=== PATIENT | male | born 1945 | race African-American/Black ===

== ENCOUNTER 2017-10-01 09:13 | Day surgery (SDC) | payer MEDICARE, MEDICAID ==
--- NOTE | 2017-10-01 06:10 | HP ---
SHORT STAY HISTORY AND PHYSICAL DATE OF ADMISSION: 10/01/2017 HISTORY OF PRESENT ILLNESS: This is a 72-year-old -Macanese male referred to me for evaluation of iron deficiency anemia. The patient had seen me two years ago with similar symptoms. At that time, his EGD and colonoscopy were negative. The patient has no symptoms of anemia. His oral intake is actually very good. He eats very well. However, he has been losing weight, lost about 12 pounds. The anemia is iron deficient. The patient has no history of hematochezia or any melena. The patient's small bowel biopsy in the past was negative for a celiac disease. The patient comes for an EGD and colonoscopy because of unexplained iron deficiency anemia. MEDICAL ILLNESSES: 1. Hypertension. 2. Prostate hypertrophy. 3. Mild dementia. 4. Osteoarthritis. 5. Chronic acid reflux. 6. Diverticulosis. 7. Allergic rhinitis. 8. Asthma. ALLERGIES: MELOXICAM. PHYSICAL EXAMINATION: GENERAL: The patient is thin built, appears comfortable. VITAL SIGNS: Pulse is 70, blood pressure is 130/70. HEENT: Conjunctivae are clear. CARDIOVASCULAR: First and second heart sounds normal. LUNGS: Clear to auscultation. ABDOMEN: Soft to palpate. No organomegaly. No tenderness. No masses. EXTREMITIES: Reveal no edema. ADMITTING DIAGNOSIS: A 72-year-old male with unexplained iron deficiency anemia. He has no history of hematochezia or melena. He does have history of weight loss of about 12 pounds over the last couple of years. PLAN: EGD and colonoscopy. [facility]
--- NOTE | 2017-10-01 13:07 | OP ---
DATE OF PROCEDURE: 10/01/2017 SURGEON: Dr. Jonathan Fatima OPERATIVE PROCEDURE: Colonoscopy with polypectomy. PREOPERATIVE DIAGNOSES: 1. Microcytic anemia. 2. Weight loss. POSTOPERATIVE DIAGNOSES: 1. Diffuse colonic diverticular disease. 2. Hemorrhoids. 3. Sessile polyp cecum, status post snare cautery. PROCEDURE IN DETAIL: The patient was placed on his left lateral position and was given sedation by A nesthesia Department. A rectal exam was done before the scope was advanced into the rectum. No lesi ons were felt on rectal exam. A Pentax video colonoscope was introduced into the rectum and advanced all the way to the cecum. The patient had retained stool, especially in the left colon. Water was used to irrigate and wash out. The mucosa appears normal throughout the colon. The appendiceal open ing, ileocecal valve, no pathology seen. A sessile cecal polyp was removed with snare cautery. The polyp stem was cauterized. He has a 10 Bulgarian probe was passed through biopsy channel and the polype ctomy site cauterized with good hemostasis. The patient had diffuse colonic diverticular disease sta rting at the sigmoid colon all the way to the cecum. The rectum showed hemorrhoids.
--- NOTE | 2017-10-01 13:56 | OP ---
DATE OF PROCEDURE: 10/01/2017 OPERATIVE PROCEDURE: Esophagogastroduodenoscopy with biopsy. PREOPERATIVE DIAGNOSES: Anemia and weight loss. POSTOPERATIVE DIAGNOSES: 1. Mild mucosal hyperemia of distal esophagus. 2. Antral gastritis. PROCEDURE NOTE: The patient was placed on his left lateral position and was given sedation by Anesth esia Department. A Pentax video gastroscope under direct vision was passed down the oropharynx, past the gastroesophageal junction, the stomach and subsequent descending duodenum. The esophageal mucos a appeared normal over the upper two-thirds. Over the distal esophagus, mild mucosal hyperemia noted . He has small hiatus hernia. The fundus, cardia, gastric body, no pathology seen. The gastric ant rum shows patchy areas of mucosal edema and erythema. Biopsies were obtained from the area. The duo denal bulb and descending duodenum, no pathology seen. The stomach was decompressed and the scope re moved. DISCHARGE PLANNING: This is a 72-year-old -Martiniquais male with anemia, which is iron deficienc y. He also has history of weight loss. He underwent EGD which was found to have antral gastritis. The colonoscopy showed a sessile polyp in the cecum. DISCHARGE RECOMMENDATIONS: 1. Patient was advised to call me if he develops abdominal pain, hematochezia or fever. 2. High-fiber diet. 3. To come back in 2 weeks.
[2017-10-01] MEDS ORDERED: PROPOFOL 200 MG/20 ML VIAL ONE (15:52)
[2017-10-01] MEDS ORDERED: Lidocaine 1% PF 5 ML VIAL ONE (15:52)
== END 2017-10-01 13:05 | disposition home or self-care (01) ==
LOC: SDC 09:13
PROVIDERS: ATTEND Internal Medicine Gastroenterology
PROC: 0DBH8ZX Excision of Cecum, Via Natural or Artificial Opening Endoscopic, Diagnostic (ICD-10-PCS; principal; 2017-10-01)
PROC: 0DB68ZX Excision of Stomach, Via Natural or Artificial Opening Endoscopic, Diagnostic (ICD-10-PCS; 2017-10-01)
DX: D12.0 Benign neoplasm of cecum (principal); D50.0 Iron deficiency anemia secondary to blood loss (chronic); K29.50 Unspecified chronic gastritis without bleeding; K57.30 Diverticulosis of large intestine without perforation or abscess without bleeding; K64.9 Unspecified hemorrhoids; K21.9 Gastro-esophageal reflux disease without esophagitis; K44.9 Diaphragmatic hernia without obstruction or gangrene; I10 Essential (primary) hypertension; F03.90 Unspecified dementia, unspecified severity, without behavioral disturbance, psychotic disturbance, mood disturbance, and anxiety; M19.90 Unspecified osteoarthritis, unspecified site; J45.909 Unspecified asthma, uncomplicated; Z88.8 Allergy status to other drugs, medicaments and biological substances
CPT/HCPCS: 88305; 88312; J2001; J2704

== ENCOUNTER 2019-04-07 21:43 | Inpatient (IN) | payer MEDICARE ==
[2019-04-07 22:33] LABS: Hemoglobin 14.2 g/dL (14.0-18.0); Mean Corpuscular HGB CONC 33.6 g/dL (32.0-36.0); Mean Corpuscular Hemoglobin 32.4 pg (27.0-31.0); Mean Corpuscular Volume 96.3 fL (78.0-98.0); RBC Distribution Width 13.5 % (11.5-14.5); Red Blood Cell (RBC) Count 4.39 mill/uL (4.70-6.10); White Blood Cell (WBC) Count 8.5 thou/uL (4.8-10.8)
[2019-04-07 22:48] LABS: ALT (SGPT) 276 U/L (8-55); AST (SGOT) 187 U/L (5-34); Albumin 3.4 g/dL (3.4-4.8); Alkaline Phosphatase 399 U/L (40-150); Anion Gap 12 mmol/L (10-20); BUN (Urea Nitrogen) 27 mg/dL (8.4-25.7); Bilirubin, Total 3.7 mg/dL (0.2-1.2); Calc. Creatinine Clearance 0 mL/min (70-130); Calcium 8.5 mg/dL (7.8-10.44); Carbon Dioxide 24 mmol/L (23-31); Chloride 107 mmol/L (98-107); Estimated GFR-MDRD 64; Globulin 2.5 g/dL (2.4-3.5); Glucose 103 mg/dL (83-110); Lipase 24 U/L (8-78); Protein, Total 5.9 g/dL (5.8-8.1); Sodium 139 mmol/L (136-145)
[2019-04-07 22:51] LABS: #Monocytes 0.6 thou/uL (0.11-0.59); #Neutrophils 6.8 thou/uL (1.40-6.50); %Basophils 0.4 % (0.0-1.0); %Eosinophils 0.2 % (0.0-10.0); %Lymphocytes 12.2 % (21.0-51.0); %Monocytes 7.3 % (0.0-10.0); Large Platelets SLIGHT; MDiff Complete? YES; Mean Platelet Volume 11.2 fL (7.4-10.4); Platelet Count 117 thou/uL (130-400)
[2019-04-08] MEDS ORDERED: Aspirin Chewable 81 MG TAB ONE (00:56)
[2019-04-08 01:07] LABS: Bacteria/HPF None Seen HPF (None Seen); Bilirubin Negative (Negative); Blood, Urine Trace (Negative); Clarity Clear (Clear); Glucose, Urine (Dipstick) Normal (Negative); Leukocyte 250 Leu/uL (Negative); Nitrite Negative (Negative); Protein, Urine (Dipstick) 20 mg/dL (Neg-Trace); RBC/HPF 0-3 HPF (0-3); Squamous Epithelial None Seen HPF (0-3); Urobilinogen 3 mg/dL (Less than 2)
[2019-04-08 02:05] LABS: Troponin I 0.155 ng/mL (< 0.028)
[2019-04-08] MEDS ORDERED: Ondansetron ODT 4 MG TAB SL PRN (03:58)
[2019-04-08] MEDS ORDERED: Acetaminophen 325 MG TAB PO PRN (03:58)
[2019-04-08] MEDS ORDERED: Ondansetron PF 4 MG/2 ML Vial IVP PRN (03:58)
[2019-04-08 05:54] VITALS: BMI 20.2
[2019-04-08 06:24] LABS: Troponin I 0.135 ng/mL (< 0.028)
--- NOTE | 2019-04-08 08:23 | ULT ---
PRELIMINARY REPORT/[facility]/EMERGENCY AFTER HOURS PROCEDURE: EXAM: US Abdomen Limited, Right Upper Quadrant EXAM DATE/TIME: 04/07/2019 11:53 PM CLINICAL HISTORY: 73 years old, male; Abdominal pain; Localized; Right upper quadrant (ruq) TECHNIQUE: Imaging protocol: Real-time ultrasound of the abdomen with image documentation. Examination was focus ed on the right upper quadrant. COMPARISON: No relevant prior studies available. FINDINGS: Pleural space: Large right pleural effusion Liver: Indeterminate septated cystic mass measuring 2.1 x 1.6 cm Gallbladder: Moderate amount of gallbladder sludge Common bile duct: Normal. No stones. No dilation. 2.1 mm Pancreas: Pancreas is not well seen due to overlying abdominal bowel gas. Right kidney: Trace right hydronephrosis IMPRESSION: 1. Large right pleural effusion of indeterminate origin. 2. Moderate amount of gallbladder sludge without evidence of acute cholecystitis 3. The pancreas is not well seen due to overlying abdominal bowel gas. Thank you for allowing us to participate in the care of your patient. Dictated and Authenticated by: Beka Christie MD 04/08/2019 1:04 AM Central Time ([place] & [place]) FINAL REPORT EMERGENCY AFTER HOURS RIGHT UPPER QUADRANT ULTRASOUND: Date: 04/08/19 Time: 0002 hours FINDINGS/IMPRESSION: Large right pleural effusion. Gallbladder sludge without evidence for acute cholecystitis. Indetermin ate complicated appearing liver cyst. Report in agreement with preliminary report given on-call by Jhoan. POS: SHAYNE
[2019-04-08] MEDS: Sodium Chloride 0.9% 1,000 ML IV SCH ×2 (11:17→22:19)
[2019-04-08] MEDS ORDERED: Enoxaparin Sodium 60 MG/0.6 ML SYRINGE SC SCH (11:30)
[2019-04-08 11:46] LABS: INR-International Normal Ratio 1.8; PTT 38.5 SEC (22.9-36.1); Prothrombin Time 20.8 SEC (12.0-14.7)
[2019-04-08 11:47] LABS: #Eosinphils 0.1 thou/uL (0.0-0.7); #Lymphocytes 1.3 thou/uL (1.20-3.40); #Monocytes 0.6 thou/uL (0.11-0.59); #Neutrophils 7.5 thou/uL (1.40-6.50); %Basophils 0.1 % (0.0-1.0); %Eosinophils 0.5 % (0.0-10.0); %Lymphocytes 13.8 % (21.0-51.0); %Monocytes 6.5 % (0.0-10.0); %Neutrophils 79.1 % (42.0-75.0); Hemoglobin 14.3 g/dL (14.0-18.0); Mean Corpuscular HGB CONC 33.3 g/dL (32.0-36.0); Mean Corpuscular Hemoglobin 31.9 pg (27.0-31.0); Mean Corpuscular Volume 95.7 fL (78.0-98.0); Mean Platelet Volume 11.2 fL (7.4-10.4); Platelet Count 112 thou/uL (130-400); RBC Distribution Width 13.5 % (11.5-14.5); Red Blood Cell (RBC) Count 4.48 mill/uL (4.70-6.10); White Blood Cell (WBC) Count 9.4 thou/uL (4.8-10.8)
[2019-04-08 12:10] LABS: ALT (SGPT) 230 U/L (8-55); AST (SGOT) 113 U/L (5-34); Albumin 3.1 g/dL (3.4-4.8); Alkaline Phosphatase 341 U/L (40-150); Anion Gap 12 mmol/L (10-20); BUN (Urea Nitrogen) 24 mg/dL (8.4-25.7); Bilirubin, Total 3.4 mg/dL (0.2-1.2); Calc. Creatinine Clearance 49 mL/min (70-130); Calcium 8.4 mg/dL (7.8-10.44); Carbon Dioxide 24 mmol/L (23-31); Chloride 109 mmol/L (98-107); Estimated GFR-MDRD Greater than 90; Globulin 2.6 g/dL (2.4-3.5); Glucose 88 mg/dL (83-110); Potassium 3.9 mmol/L (3.5-5.1); Protein, Total 5.7 g/dL (5.8-8.1); Sodium 141 mmol/L (136-145)
--- NOTE | 2019-04-08 12:17 | HP ---
PRIMARY CARE PHYSICIAN: [facility]. CHIEF COMPLAINT: Excessive sleepiness and poor oral intake. HISTORY OF PRESENT ILLNESS: The following history was obtained from review of medical record. The patient with history of dementia, was unable to provide any history as he does not know why he is in the hospital. The patient reportedly was brought in due to excessive sleepiness, worsening weakness, and poor oral intake. There was no history of fever, chest pain, nausea, vomiting, leg swelling, abdominal pain, focal weakness, dysuria, hematuria, or hematemesis. The patient tells me he does not think he has lost any weight, but he looks thin. On presentation to the emergency room, the patient was found to have stable vitals, but further evaluation revealed mildly elevated creatinine as well as elevated troponin and abnormal liver function test. He was admitted for further evaluation and treatment. PAST MEDICAL HISTORY: 1. Dementia. 2. Asthma. 3. Hyperlipidemia. 4. BPH. 5. Hypertension. 6. Hemorrhoids. 7. CKD, stage 3. 8. Diabetes mellitus. 9. Gastroesophageal reflux disease. 10. Diverticulosis. 11. Osteoarthritis. 12. Allergic rhinitis. 13. Iron-deficiency anemia. PAST SURGICAL HISTORY: 1. Hemorrhoidectomy. 2. EGD. FAMILY HISTORY: Could not be obtained due to the patient's condition. SOCIAL HISTORY: The patient says he lives alone. Veracity of this could not be ascertained, but it seems like the patient has a caregiver who comes in. Ex- also may be contributing in his care. The patient denied smoking or alcohol use. ALLERGIES: NO KNOWN DRUG ALLERGIES REPORTED. HOME MEDICATIONS: This could not be verified as yet, but the following are listed as home medications. 1. Simvastatin 40 mg daily. 2. Ferrous sulfate 325 mg daily. 3. Donepezil 10 mg p.o. daily at bedtime. 4. Doxazosin 8 mg p.o. daily at bedtime. REVIEW OF SYSTEMS: The patient is confused and had memory lapses. This is grossly limited review of systems. Otherwise, 12-point review of system performed was negative other than pertinent positives and negatives included in the history of present illness. PHYSICAL EXAMINATION: VITAL SIGNS: Initial vitals on presentation to the ER on 04/07/2019, showed the following vitals: BP 106/68, pulse 90, respiratory rate 18, temperature 99.8, and SpO2 of 92 on room air. Pain 0/10. Most current vitals at 8 a.m. on 04/08/2019, are as follows: Temperature 98.4, pulse 71, respiratory rate 16, SpO2 of 96 on room air, and blood pressure 94/67. GENERAL: Chronically ill-looking, slim, elderly male, in no obvious distress. Afebrile. Anicteric. Acyanotic. HEENT: Normocephalic and atraumatic. Lips are dry with some crack on the angles. NECK: Supple and nontender with no obvious masses or lymphadenopathy. CARDIOVASCULAR: Regular rhythm and rate with normal heart sounds. RESPIRATORY: Fair air entry bilaterally with no obvious crackle or rhonchi or use of accessory muscles. GI: Full, soft, nontender, and nondistended with normal bowel sounds. EXTREMITIES: Diffuse muscle wasting of lower extremities noted. No edema or erythema appreciated. Nontraumatic. DOCTOR OSTEOPATHIC: Conscious and alert. Oriented to person and place. Cranial nerves 2 through 12 are grossly intact. The patient moves all extremities. DIAGNOSTIC DATA: CBC on presentation, 04/07/2019, showed WBC count of 8.5, hemoglobin of 14.2, MCV of 96.3, and platelets of 117. CMP on 04/07/2019 showed sodium 139, potassium 4.0, chloride 107, CO2 of 24, BUN 27, creatinine 1.33, glucose 103, and calcium 8.5. Total bilirubin 3.7, AST 187, ALT 276, alkaline phosphatase 399, total protein 5.9, albumin 3.4, and globulin 2.5. Lactic acid on presentation was 1.5. Lipase was 24 and ammonia was 25. Cardiac markers on presentation showed CK-MB of 1.0 and troponin of 0.165. Urinalysis showed yellow clear urine with pH of 5.5, specific gravity of 1.026, urine protein 20 mg/dL, negative ketone, trace blood, negative nitrite and bilirubin with elevated leukocyte esterase. Microscopy showed 0 to 3 rbc and 4 to 6 wbc. EKG x2 showed normal sinus rhythm with rate of [address] changes as well as T inversion in leads V2 through V6 were noted. Right upper quadrant ultrasound showed large pleural effusion. Septated cystic mass, measuring 2.1 x 1.6, as well as moderate amount of gallbladder sludge without evidence of acute cholecystitis. Normal-sized common bile duct, measuring 2.1 mm, with no stone. Pancreas was not well seen due to abdominal gas, but right kidney showed trace right hydronephrosis. ASSESSMENT: 1. Altered mental sensation of excessive sleepiness: Etiology is unclear, but acute encephalopathy from abnormal liver enzymes and dehydration may be responsible. 2. Abnormal liver function test with hyperbilirubinemia and elevated enzymes: No obvious cholecystitis was noted on gallbladder ultrasound, but mass was noted in liver scan. This is concerning for neoplasm given associated weight loss. Review of medical records showed the patient was evaluated in 2018 for weight loss, during which time he had EGD, which showed antral gastritis. 3. Chronic kidney disease with reversible component. 4. Troponin elevation. 5. Abnormal EKG, showing T-wave inversion in lateral leads. Concerning for qip-MM-doxrvyxgk myocardial infarction given associated elevation in troponin. 6. Asthma with no acute exacerbation. 7. Dementia. 8. Gastroesophageal reflux disease status post esophagogastroduodenoscopy, showing antral gastritis as well as esophagitis. 9. History of dementia. 10. Benign prostatic hypertrophy, on medications. 11. Pyuria on urinalysis: The patient denied urinary symptoms. PLAN: 1. We will start the patient on IV fluid therapy. 2. We will get bedside swallow evaluation, and if good, we will start the patient on regular diet. 3. We will get echocardiogram of the heart to assess cardiac function. 4. Cardiology consult is contemplated. 5. We will start the patient on antithrombotic therapy. 6. We will also get GI consult. 7. We will plan on getting CT scan of the abdomen and pelvis as well as chest for further evaluation. 8. Bronchodilators as needed will be provided given history of asthma. 9. We will also start oral supplement. 10. We will get repeat CMP, CBC and also get coagulation panel since biopsy is contemplated. Further treatment to follow depending on review of other diagnostic tests and hospital course. CODE STATUS: We will make the patient full code for now since there is no relative at the bedside and the patient is with dementia. We will change the patient's admission to inpatient as the patient is anticipated to be in this hospital for more than 3 midnights. Job ID: [id number]
[2019-04-08] MEDS: Atorvastatin Calcium 40 MG TAB PO SCH (20:46)
[2019-04-08] MEDS: Famotidine 20 MG TAB PO SCH (20:46)
[2019-04-08] MEDS: Enoxaparin Sodium 60 MG/0.6 ML SYRINGE SC SCH (20:46)
[2019-04-08] MEDS: Acetylcysteine 20% 200 MG/ML 30 ML VIAL PO SCH (20:47)
[2019-04-09 05:24] LABS: #Eosinphils 0.1 thou/uL (0.0-0.7); #Lymphocytes 1.3 thou/uL (1.20-3.40); #Monocytes 0.6 thou/uL (0.11-0.59); #Neutrophils 6.4 thou/uL (1.40-6.50); %Basophils 0.1 % (0.0-1.0); %Eosinophils 0.7 % (0.0-10.0); %Lymphocytes 15.2 % (21.0-51.0); %Monocytes 7.5 % (0.0-10.0); %Neutrophils 76.5 % (42.0-75.0); Mean Corpuscular HGB CONC 33.3 g/dL (32.0-36.0); Mean Corpuscular Hemoglobin 32.4 pg (27.0-31.0); Mean Corpuscular Volume 97.2 fL (78.0-98.0); Mean Platelet Volume 11.3 fL (7.4-10.4); Platelet Count 108 thou/uL (130-400); RBC Distribution Width 13.5 % (11.5-14.5); Red Blood Cell (RBC) Count 4.03 mill/uL (4.70-6.10); White Blood Cell (WBC) Count 8.4 thou/uL (4.8-10.8)
[2019-04-09 05:28] LABS: ALT (SGPT) 201 U/L (8-55); AST (SGOT) 100 U/L (5-34); Albumin 2.7 g/dL (3.4-4.8); Alkaline Phosphatase 303 U/L (40-150); Anion Gap 9 mmol/L (10-20); BUN (Urea Nitrogen) 17 mg/dL (8.4-25.7); Bilirubin, Total 2.5 mg/dL (0.2-1.2); Calc. Creatinine Clearance 59 mL/min (70-130); Calcium 7.7 mg/dL (7.8-10.44); Carbon Dioxide 25 mmol/L (23-31); Chloride 109 mmol/L (98-107); Estimated GFR-MDRD Greater than 90; Globulin 2.3 g/dL (2.4-3.5); Glucose 88 mg/dL (83-110); Potassium 3.7 mmol/L (3.5-5.1); Sodium 139 mmol/L (136-145)
[2019-04-09] MEDS ORDERED: Prevnar 13-Val Conj/PF 0.5 ML SYRINGE IM ONE (08:15)
[2019-04-09] MEDS ORDERED: Phytonadione 10 MG/ML AMP PO SCH (09:00)
[2019-04-09] MEDS: Donepezil HCl 10 MG TAB PO SCH (09:33)
[2019-04-09] MEDS: Montelukast Sodium 10 mg Tablet PO SCH (09:33)
[2019-04-09] MEDS: Enoxaparin Sodium 60 MG/0.6 ML SYRINGE SC SCH ×2 (09:33→20:28)
[2019-04-09] MEDS: Acetylcysteine 20% 200 MG/ML 30 ML VIAL PO SCH ×2 (09:33→20:27)
[2019-04-09] MEDS: Famotidine 20 MG TAB PO SCH ×2 (09:33→20:28)
--- NOTE | 2019-04-09 09:38 | CON ---
DATE OF CONSULTATION: 04/08/2019 NAME OF REFERRING DOCTOR: Dr. Stewart. REASON FOR CONSULTATION: Abnormal LFTs. HISTORY OF PRESENT ILLNESS: Anup Mo is a 73-year-old male, brought to the ER by the recreation leader yesterday because of altered mental status and abnormal behavior. The patient fully functional and was eating very well until yesterday. On Saturday, he had a good meal and had no problem. Yesterday, recreation leader noticed the patient to be having slight altered mental status and became very sleepy, also became little bit hostile. The patient was refusing to eat. He was brought to the ER because of above reasons. The patient was found to have abnormal LFTs. The patient . The patient is known to me from before. He was referred to me by Dr. Kevin Yan because of iron-deficiency anemia. He had an EGD and a colonoscopy in 2018, which findings. The patient was supposedly sleepy and has some altered mental status yesterday. However, when I went to see him today, he is sitting up in bed, awake, alert, and communicative. Medical Transcription tells me his mental status is back to baseline. He is talking very nicely and is eating well at the present time. The only abnormal finding in the lab result is he is mildly dehydrated with BUN of 27. The patient denied abdominal pain, nausea, or vomiting. No dysphagia or odynophagia. ALLERGIES: NO KNOWN DRUG ALLERGIES. SOCIAL HISTORY: The patient lives alone at home and has a recreation leader. He does not smoke or drink alcohol at the present time. MEDICAL ILLNESSES: 1. History of mild dementia. 2. Asthma. 3. Hyperlipidemia. 4. Benign prostatic hypertrophy. 5. Hypertension. 6. CKD, stage 3. 7. Diabetes mellitus. 8. Diverticular disease. 9. Osteoarthritis. 10. Allergic rhinitis. . PAST SURGICAL HISTORY: Hemorrhoidectomy, EGD and colonoscopy x2. FAMILY HISTORY: Not obtainable. MEDICATIONS: 1. Simvastatin. 2. Ferrous sulfate. 3. Donepezil at bedtime. 4. Doxazosin at bedtime. REVIEW OF SYSTEMS: ASSEMBLY LOADER: The patient denies any chronic headache. No history of seizure disorder. No dizziness or syncope. RESPIRATORY SYSTEM: No history of chronic coughing, hemoptysis. No dyspnea. CARDIOVASCULAR SYSTEM: No chest pain. No palpitation. No dyspnea, orthopnea, or PND. GI: No abdominal pain. No nausea or vomiting. No hematochezia. No melena. : No dysuria, urinary incontinence. MUSCULOSKELETAL: Not relevant. PHYSICAL EXAMINATION: GENERAL: He appears thin built. His recreation leader . He is awake, alert, and communicative. He is not able to tell me my name, but he is able to tell me his name and his date of etc., but was not able to tell me the month, year, etc. He is thin built. VITAL SIGNS: His pulse is 90, blood pressure 106/70. HEENT: Conjunctivae clear. NECK: Supple. No adenitis or thyromegaly. CARDIOVASCULAR: First and second heart sounds heard. EXTREMITIES: No edema. LABS/X-RAYS: CBC; WBC 9400, hemoglobin 14.3, hematocrit 42.9, platelets 112,000. Chemistry panel; the sodium is 141, potassium 3.9, chloride 109, carbon dioxide 24, BUN 24, creatinine 0.97, glucose 88, calcium 8.4, AST is 113, ALT 230, alkaline phosphatase 341. Ammonia level is normal at 25. Troponin is 0.135. Albumin 3.1, total protein 5.7. An abdominal sonogram shows gallbladder sludge without any cholecystitis and a normal CBD. 1. A small cystic mass in the liver measuring 2.1 x 1.6 cm. Pancreas was not well seen. IMPRESSION: 1. A 73-year-old male with history of mild dementia and hospitalized because of altered mental status. His serum ammonia level is normal. some mild thrombocytopenia of unknown etiology. 2. Abnormal LFTs, etiology unclear. The abdominal sonogram shows a small cystic lesion in the liver. 3. Mild dementia. 4. Hypertension. 5. Hyperlipidemia. 6. Benign prostatic hypertrophy. Overall impression is the patient is admitted because of altered mental status. His mental status is back to baseline. He is awake and alert. He has no abdominal pain, nausea, or vomiting. Liver enzymes are elevated possibly because of pathology. Definitely, he has very benign. CBD size is normal. He does have biliary sludge, but no cholecystitis. RECOMMENDATIONS: 1. IV hydration. 2. Follow up LFTs. 3. Hold the simvastatin. 4. Obtain abdominal CAT scan with contrast for better evaluation of the cystic lesion in the liver and also to see any pancreatic pathology. Job ID: [id number]
--- NOTE | 2019-04-09 09:43 | CT ---
EXAM: CT of the chest with contrast CT of the abdomen and pelvis with contrast HISTORY: Weight loss and abnormal liver function COMPARISON: None TECHNIQUE: 1. Multiple contiguous axial images were obtained in a CT the chest with contrast. Coronal reformats were performed. 2. Multiple contiguous axial images were obtained and a CT of the abdomen and pelvis without and with contrast. Coronal reformats were performed. FINDINGS: CT CHEST: HEART: Normal in size without focal cardiac abnormality MEDIASTINUM: No hilar or mediastinal lymphadenopathy. LUNGS: Bibasilar atelectasis versus infiltrates. A calcified granuloma is seen in the right middle lo be. PLEURAL SPACE: Small bilateral pleural effusions, right greater than left. CHEST WALL SOFT TISSUES: Unremarkable CT ABDOMEN/PELVIS: ABDOMEN: LIVER: Scattered well-circumscribed hypodensities measuring up to 1.9 cm in size likely represent cys ts. BILE DUCTS: Normal caliber. GALLBLADDER: No calcified gallstones. Normal caliber wall. PANCREAS: within normal limits. SPLEEN: Small calcified granuloma ADRENALS: within normal limits. KIDNEYS: within normal limits. PELVIS: REPRODUCTIVE ORGANS: No pelvic masses. URETERS: within normal limits. BLADDER: within normal limits. PERITONEUM: No ascites or free air, no fluid collection. BOWEL: Normal caliber. Scattered diverticula in the colon. Normal appendix. MESENTERY AND RETROPERITONEUM: No enlarged mesenteric or retroperitoneal lymph nodes. VESSELS: Atherosclerotic calcifications. ABDOMINAL WALL: within normal limits. OSSEOUS STRUCTURES: Degenerative changes in the spine. IMPRESSION: 1. Bilateral pleural effusions with adjacent atelectasis versus infiltrates 2. Diverticulosis 3. Hepatic cysts
[2019-04-09] MEDS: Sodium Chloride 0.9% 1,000 ML IV SCH (09:47)
--- NOTE | 2019-04-09 15:20 | PDOC.HOSPP ---
- Subjective Encounter Date: 04/09/19 Encounter Time: 11:17 Subjective: 73 y/o male with dementia admitted with excessive sleepiness and poor oral intake. Found to have DAVID and abnormal LFT as well as elevated troponin. Remained symptom free. Denied chest pain, abdominal pain or fever. - Objective Vital Signs & Weight: Vital Signs (12 hours) Temp Pulse Pulse Pulse Resp BP BP 04/09/19 12:00 97.7 F 89 16 04/09/19 09:28 04/09/19 08:00 97.2 F L 84 18 04/09/19 07:56 83 86 118/79 122/83 04/09/19 04:00 97.8 F 80 16 BP Pulse Ox 04/09/19 12:00 139/91 H 98 04/09/19 09:28 98 04/09/19 08:00 118/79 98 04/09/19 07:56 04/09/19 04:00 120/78 95 Weight Admit Weight 114 lb 9.6 oz Weight 114 lb 9.6 oz I&O: 04/08/19 04/09/19 04/10/19 06:59 06:59 06:59 Intake Total 20 1450 Balance 20 1450 Result Diagrams: 04/09/19 04:49 04/09/19 04:49 Additional Labs: Accuchecks 04/09/19 04/09/19 04/08/19 10:57 06:14 23:37 POC Glucose 102 74 97 04/08/19 17:03 POC Glucose 165 H Hospitalist ROS - Medication Medications: Active Medications Generic Name Dose Route Start Last Admin Trade Name Freq PRN Reason Stop Dose Admin Acetylcysteine 600 mg 04/08/19 21:00 04/09/19 09:33 Mucomyst 20% PO 04/09/19 21:01 600 mg BID ARTURO Administration Atorvastatin Calcium 40 mg 04/08/19 21:00 04/08/19 20:46 Lipitor PO 40 mg HS ARTURO Administration Donepezil HCl 10 mg 04/09/19 09:00 04/09/19 09:33 Aricept PO 10 mg DAILY ARTURO Administration Enoxaparin Sodium 50 mg 04/08/19 21:00 04/09/19 09:33 Lovenox SC 50 mg 0900,2100 ARTURO Administration Famotidine 20 mg 04/08/19 21:00 04/09/19 09:33 Pepcid PO 20 mg BID ARTURO Administration Montelukast Sodium 10 mg 04/09/19 09:00 04/09/19 09:33 Singulair PO 10 mg DAILY ARTURO Administration - Exam General Appearance: awake alert General - other findings: chronically ill looking. cachetic ENT: normocephalic atraumatic, moist mucosa Neck: supple, symmetric Heart: RRR Respiratory: no wheezes, no rales, no ronchi, normal chest expansion Gastrointestinal: soft, non-tender, non-distended, normal bowel sounds Extremities: no cyanosis, no edema Neurological: CN's grossly intact, no focal deficits Musculoskeletal: generalized weakness, diffuse muscle atrophy Psychiatric: oriented to person, oriented to place Psychiatric - other findings: some confusion and memeory lapses Hosp A/P (1) Acute metabolic encephalopathy Code(s): G93.41 - METABOLIC ENCEPHALOPATHY Status: Acute (2) Abnormal LFTs Code(s): R94.5 - ABNORMAL RESULTS OF LIVER FUNCTION STUDIES Status: Acute (3) DAVID (acute kidney injury) Code(s): N17.9 - ACUTE KIDNEY FAILURE, UNSPECIFIED Status: Acute (4) Dehydration Code(s): E86.0 - DEHYDRATION Status: Acute (5) Cachexia Code(s): R64 - CACHEXIA Status: Acute (6) Liver mass Code(s): R16.0 - HEPATOMEGALY, NOT ELSEWHERE CLASSIFIED Status: Acute (7) Physical deconditioning Code(s): R53.81 - OTHER MALAISE Status: Acute (8) Dementia Code(s): F03.90 - UNSPECIFIED DEMENTIA WITHOUT BEHAVIORAL DISTURBANCE Status: Acute (9) Elevated troponin Code(s): R74.8 - ABNORMAL LEVELS OF OTHER SERUM ENZYMES Status: Acute (10) Acute AR Code(s): I21.9 - ACUTE MYOCARDIAL INFARCTION, UNSPECIFIED Status: Suspected - Plan Continue antithrombotic therapy Get CT chest/abd/Pelvis with contrast. DC IVF after CT. liberal oral intake Aprreviate GI input. Consult cardiology Awaiting echo
--- NOTE | 2019-04-09 18:11 | CON ---
DATE OF CONSULTATION: 04/09/2019 REASON FOR CONSULTATION: Nonsustained VT and cardiomyopathy. HISTORY OF PRESENT ILLNESS: Mr. Mo is a 73-year-old gentleman with previous history of underlying dementia. The history is very difficult. The patient is not able to provide appropriate history. The history is obtained from the chart. He was brought in for excessive sleepiness and poor p.o. intake. Denies chest pain, pressure, shortness of breath, syncope, or presyncope. PAST MEDICAL HISTORY: Advanced dementia, hyperlipidemia, hypertension, chronic kidney disease, diabetes mellitus, acid reflux, osteoarthritis, allergic rhinitis, and iron deficiency anemia. SOCIAL HISTORY: He states he has a , but the chart states he has an ex-. His current living condition is unknown. ALLERGIES: NONE. REVIEW OF SYSTEMS: Difficult to obtain. PHYSICAL EXAMINATION: GENERAL: Patient is a pleasant 73-year-old who is in no acute distress. The patient appears their stated age. The patient is not oriented to time, person, or place. VITAL SIGNS: Blood pressure 114/66, pulse 81, temperature 98.6. NEUROLOGIC: The patient is alert and oriented x3 with no focal neurologic deficits. HEENT: Sclerae without icterus. Mouth has moist mucous membranes with normal pallor. NECK: No JVD. Carotid upstroke brisk. No bruits bilaterally. LUNGS: Clear to auscultation with unlabored respirations. BACK: No scoliosis or kyphosis. CARDIAC: Regular rate and rhythm with normal S1 and S2. No S3 or S4 noted. No significant rubs, murmurs, thrills, or gallops noted throughout the precordium. PMI is not displaced. There is no parasternal heave. ABDOMEN: Soft, nontender, nondistended. No peritoneal signs present. No hepatosplenomegaly. No abnormal striae. EXTREMITIES: 2+ femoral and 2+ dorsalis pedis pulses. No cyanosis, clubbing, or edema. SKIN: No gross abnormalities. PERTINENT LABORATORY DATA: Hemoglobin 13. Creatinine 0.81, AST 100, ALT 201. Echo Doppler shows LVEF of 25% to 30%, LV appears dilated. IMPRESSION: 1. Nonsustained ventricular tachycardia. 2. Cardiomyopathy of unknown etiology. 3. Advanced dementia. RECOMMENDATIONS: Certainly difficult situation. The patient does have underlying advanced dementia and history is very difficult to obtain. At this point, we will defer any further aggressive therapy from a CV standpoint until I discussed further issues with the family. At this point, treat medically with beta chris therapy in addition to MILLER inhibitor therapy, digoxin, and low-dose aspirin. We will add low-dose Coreg in addition to low-dose MILLER inhibitor therapy. Job ID: [id number]
[2019-04-09] MEDS: Carvedilol 3.125 MG TAB PO SCH (20:28)
[2019-04-09] MEDS: Atorvastatin Calcium 40 MG TAB PO SCH (20:28)
--- NOTE | 2019-04-10 07:51 | PRG ---
DATE OF SERVICE: 04/09/2019 SUBJECTIVE: This is a 73-year-old male, hospitalized because of altered mental status and also abnormal LFTs. Mental status is back to baseline. He is eating well. No abdominal pain. No nausea or vomiting. Liver function tests remain elevated. His abdominal sonogram had done on admission showed no pathology. He had a CAT scan of abdomen done today shows liver cyst, normal pancreas, normal bile duct. No liver mass seen. He is tolerating diet. No abdominal pain. No nausea. No vomiting. He is on atorvastatin for hyperlipidemia. He is also on medicines including Coreg, Singulair, Seroquel etc. He offers no complaints. OBJECTIVE: GENERAL: Awake, alert, and communicative. VITAL SIGNS: Afebrile. Pulse is 81 and blood pressure 114/66. CARDIOVASCULAR AND LUNGS: Within normal limits. ABDOMEN: Soft. No organomegaly. No tenderness. LABORATORY DATA: Shows normal CBC today. His chemistry panel is normal. BUN is 17, creatinine 0.81. Liver function test; bilirubin 2.5, AST 100, ALT 121, and alkaline phosphate 303. CLINICAL IMPRESSION: Abnormal LFTs, possibly drug induced as having been on atorvastatin. His abdominal CAT scan is basically negative. RECOMMENDATIONS: 1. Hold atorvastatin. 2. Follow up LFTs. 3. Obtain hepatitis markers. Job ID: [id number]
--- NOTE | 2019-04-10 09:43 | PDOC.HOSPP ---
- Subjective Encounter Date: 04/10/19 Encounter Time: 09:41 Subjective: 73 y/o male with dementia admitted with excessive sleepiness and poor oral intake. Found to have DAVID and abnormal LFT as well as elevated troponin. Remained symptom free. Still confused. Required sitter last night. Denied chest pain, abdominal pain or fever. - Objective Vital Signs & Weight: Vital Signs (12 hours) Temp Pulse Resp BP Pulse Ox 04/10/19 03:42 97.7 F 67 18 120/80 97 04/10/19 00:00 97.7 F 75 18 99/64 95 Weight Admit Weight 114 lb 9.6 oz Weight 114 lb 9.6 oz I&O: 04/09/19 04/10/19 04/11/19 06:59 06:59 06:59 Intake Total 1450 1100 Balance 1450 1100 Result Diagrams: 04/09/19 04:49 04/09/19 04:49 Additional Labs: Accuchecks 04/10/19 04/09/19 04/09/19 06:09 21:06 16:59 POC Glucose 80 147 H 137 H 04/09/19 10:57 POC Glucose 102 Hospitalist ROS - Medication Medications: Active Medications Generic Name Dose Route Start Last Admin Trade Name Freq PRN Reason Stop Dose Admin Atorvastatin Calcium 40 mg 04/08/19 21:00 04/09/19 20:28 Lipitor PO 40 mg HS ARTURO Administration Carvedilol 3.125 mg 04/09/19 21:00 04/09/19 20:28 Coreg PO 3.125 mg BID ARTURO Administration Donepezil HCl 10 mg 04/09/19 09:00 04/09/19 09:33 Aricept PO 10 mg DAILY ARTURO Administration Famotidine 20 mg 04/08/19 21:00 04/09/19 20:28 Pepcid PO 20 mg BID ARTURO Administration Montelukast Sodium 10 mg 04/09/19 09:00 04/09/19 09:33 Singulair PO 10 mg DAILY ARTURO Administration - Exam General Appearance: awake alert General - other findings: cachetic ENT: normocephalic atraumatic Neck: symmetric, no JVD Heart: RRR Respiratory: no wheezes, no rales, no ronchi, normal chest expansion Gastrointestinal: soft, non-tender, non-distended, normal bowel sounds Extremities: no cyanosis, no edema Neurological: CN's grossly intact, no focal deficits Neurological - other findings: confusion and memory lapses noted Musculoskeletal: generalized weakness, diffuse muscle atrophy Psychiatric: oriented to person, oriented to place Psychiatric - other findings: intermittent agitation noted Hosp A/P (1) Acute metabolic encephalopathy Code(s): G93.41 - METABOLIC ENCEPHALOPATHY Status: Acute (2) Abnormal LFTs Code(s): R94.5 - ABNORMAL RESULTS OF LIVER FUNCTION STUDIES Status: Acute (3) DAVID (acute kidney injury) Code(s): N17.9 - ACUTE KIDNEY FAILURE, UNSPECIFIED Status: Acute (4) Dehydration Code(s): E86.0 - DEHYDRATION Status: Acute (5) Cachexia Code(s): R64 - CACHEXIA Status: Acute (6) Liver mass Code(s): R16.0 - HEPATOMEGALY, NOT ELSEWHERE CLASSIFIED Status: Acute (7) Physical deconditioning Code(s): R53.81 - OTHER MALAISE Status: Acute (8) Dementia Code(s): F03.90 - UNSPECIFIED DEMENTIA WITHOUT BEHAVIORAL DISTURBANCE Status: Acute (9) Elevated troponin Code(s): R74.8 - ABNORMAL LEVELS OF OTHER SERUM ENZYMES Status: Acute (10) Acute MN Code(s): I21.9 - ACUTE MYOCARDIAL INFARCTION, UNSPECIFIED Status: Suspected (11) Cardiomyopathy Code(s): I42.9 - CARDIOMYOPATHY, UNSPECIFIED Status: Acute (12) Liver masses Code(s): R16.0 - HEPATOMEGALY, NOT ELSEWHERE CLASSIFIED Status: Acute (13) Pulmonary HTN Code(s): I27.20 - PULMONARY HYPERTENSION, UNSPECIFIED Status: Acute (14) Moderate to severe mitral regurgitation Code(s): I34.0 - NONRHEUMATIC MITRAL (VALVE) INSUFFICIENCY Status: Acute - Plan Increase seroquel to 25 Hs for agitation Change lovenox to 40 daily. Start asa as biopsy is unlikely now. Follow Renal and hepatic function as well as Hb liberal oral intake Aprreciate GI input. Awaiting daughters arrival to discuss care options. Consult palliative care
[2019-04-10] MEDS: Carvedilol 3.125 MG TAB PO SCH ×2 (09:44→20:10)
[2019-04-10] MEDS: Montelukast Sodium 10 mg Tablet PO SCH (09:44)
[2019-04-10] MEDS: Donepezil HCl 10 MG TAB PO SCH (09:44)
[2019-04-10] MEDS: Lisinopril 5 MG TAB PO SCH (09:44)
[2019-04-10] MEDS: Famotidine 20 MG TAB PO SCH ×2 (09:44→20:10)
[2019-04-10] MEDS: Enoxaparin Sodium 60 MG/0.6 ML SYRINGE SC SCH (09:46)
[2019-04-10 10:34] LABS: ALT (SGPT) 215 U/L (8-55); AST (SGOT) 103 U/L (5-34); Albumin 3.1 g/dL (3.4-4.8); Alkaline Phosphatase 306 U/L (40-150); Anion Gap 11 mmol/L (10-20); BUN (Urea Nitrogen) 14 mg/dL (8.4-25.7); Bilirubin, Total 1.7 mg/dL (0.2-1.2); Calc. Creatinine Clearance 60 mL/min (70-130); Calcium 8.3 mg/dL (7.8-10.44); Carbon Dioxide 24 mmol/L (23-31); Chloride 106 mmol/L (98-107); Estimated GFR-MDRD Greater than 90; Globulin 2.7 g/dL (2.4-3.5); Glucose 76 mg/dL (83-110); Potassium 3.6 mmol/L (3.5-5.1); Protein, Total 5.8 g/dL (5.8-8.1); Sodium 137 mmol/L (136-145)
--- NOTE | 2019-04-10 14:01 | PRG ---
DATE OF SERVICE: 04/10/2019 SUBJECTIVE: No significant changes noted overnight. The patient continues to be confused. He continues to crawl on the bed. He is requiring one on one care. OBJECTIVE: VITAL SIGNS: Blood pressure 135/87, pulse 94, and temperature 98.3. LUNGS: Clear to auscultation. HEART: Regular rate and rhythm. ABDOMEN: Soft, nontender, and nondistended. EXTREMITIES: No edema. PERTINENT LABORATORY DATA: Hemoglobin 13, hematocrit 39, and creatinine 0.79. IMPRESSION: 1. New onset cardiomyopathy, unknown etiology. 2. Nonsustained ventricular tachycardia. 3. Advanced dementia. RECOMMENDATIONS: Certainly difficult case. I have reached out to the only point of contact in the chart, which is ex-. I have left a message. No other family has been available on 2 separate visits. Based on his underlying dementia and confusion, I do not feel he would benefit from a more aggressive treatment plan. At most, we would consider ICD, but this certainly may not be recommended. He certainly is very confused. We would consider medical therapy. He has been placed on a carvedilol in addition to atorvastatin. We will discontinue Lovenox and continue MILLER inhibitor therapy. We will also recommend low-dose amiodarone treatment. At some point, we would like to discuss with the family on medical therapy recommendations and no aggressive therapy. Job ID: [id number]
[2019-04-10] MEDS: Atorvastatin Calcium 40 MG TAB PO SCH (20:10)
[2019-04-11 05:11] LABS: ALT (SGPT) 205 U/L (8-55); AST (SGOT) 97 U/L (5-34); Albumin 2.8 g/dL (3.4-4.8); Alkaline Phosphatase 264 U/L (40-150); Anion Gap 9 mmol/L (10-20); BUN (Urea Nitrogen) 15 mg/dL (8.4-25.7); Bilirubin, Total 1.3 mg/dL (0.2-1.2); Calc. Creatinine Clearance 59 mL/min (70-130); Calcium 8.1 mg/dL (7.8-10.44); Carbon Dioxide 24 mmol/L (23-31); Chloride 106 mmol/L (98-107); Estimated GFR-MDRD Greater than 90; Globulin 2.7 g/dL (2.4-3.5); Glucose 109 mg/dL (83-110); Potassium 3.9 mmol/L (3.5-5.1); Protein, Total 5.5 g/dL (5.8-8.1); Sodium 135 mmol/L (136-145)
[2019-04-11] MEDS: Amiodarone 200 MG TAB PO SCH (09:20)
[2019-04-11] MEDS: Donepezil HCl 10 MG TAB PO SCH (09:20)
[2019-04-11] MEDS: Lisinopril 5 MG TAB PO SCH (09:20)
[2019-04-11] MEDS: Montelukast Sodium 10 mg Tablet PO SCH (09:20)
[2019-04-11] MEDS: Enoxaparin Sodium 40 MG/0.4 ML SYRINGE SC SCH (09:21)
[2019-04-11] MEDS: Carvedilol 3.125 MG TAB PO SCH ×2 (09:21→19:46)
[2019-04-11] MEDS: Famotidine 20 MG TAB PO SCH ×2 (09:21→19:46)
--- NOTE | 2019-04-11 13:20 | PDOC.HOSPP ---
- Subjective Encounter Date: 04/11/19 Encounter Time: 10:00 Subjective: pt up in bed oriented x2, daughter at bedside - Objective Vital Signs & Weight: Vital Signs (12 hours) Temp Pulse Pulse Pulse Resp BP BP 04/11/19 11:30 98.1 F 78 16 04/11/19 10:30 80 78 128/84 04/11/19 09:20 73 121/79 04/11/19 08:20 04/11/19 07:54 97.6 F 73 16 04/11/19 04:00 98 F 72 18 BP BP Pulse Ox 04/11/19 11:30 128/84 96 04/11/19 10:30 133/92 H 04/11/19 09:20 04/11/19 08:20 95 04/11/19 07:54 121/79 95 04/11/19 04:00 134/90 95 Weight Admit Weight 114 lb 9.6 oz Weight 114 lb 9.6 oz I&O: 04/10/19 04/11/19 04/12/19 06:59 06:59 06:59 Intake Total 1100 150 Balance 1100 150 Result Diagrams: 04/09/19 04:49 04/11/19 04:11 Additional Labs: Accuchecks 04/11/19 04/11/19 04/10/19 10:50 06:09 19:53 POC Glucose 104 86 110 04/10/19 16:16 POC Glucose 119 H Hospitalist ROS - Review of Systems Respiratory: denies: cough, dry, shortness of breath, hemoptysis, SOB with excertion, pleuritic pain, sputum, wheezing, other Cardiovascular: denies: chest pain, palpitations, orthopnea, paroxysmal noc. dyspnea, edema, light headedness, other Gastrointestinal: denies: nausea, vomitting, abdominal pain, diarrhea, constipation, melena, hematochezia, other - Medication Medications: Active Medications Generic Name Dose Route Start Last Admin Trade Name Freq PRN Reason Stop Dose Admin Amiodarone HCl 400 mg 04/11/19 09:00 04/11/19 09:20 Cordarone PO 400 mg DAILY ARTURO Administration Atorvastatin Calcium 40 mg 04/08/19 21:00 04/10/19 20:10 Lipitor PO 40 mg HS ARTURO Administration Carvedilol 3.125 mg 04/09/19 21:00 04/11/19 09:21 Coreg PO 3.125 mg BID ARTURO Administration Donepezil HCl 10 mg 04/09/19 09:00 04/11/19 09:20 Aricept PO 10 mg DAILY ARTURO Administration Enoxaparin Sodium 40 mg 04/11/19 09:00 04/11/19 09:21 Lovenox SC 40 mg DAILY ARTURO Administration Famotidine 20 mg 04/08/19 21:00 04/11/19 09:21 Pepcid PO 20 mg BID ARTURO Administration Lisinopril 2.5 mg 04/10/19 09:00 04/11/19 09:20 Zestril PO 2.5 mg DAILY ARTURO Administration Montelukast Sodium 10 mg 04/09/19 09:00 04/11/19 09:20 Singulair PO 10 mg DAILY ARTURO Administration Quetiapine Fumarate 25 mg 04/10/19 21:00 04/10/19 20:10 Seroquel PO 25 mg HS ARTURO Administration - Exam Neck: negative: supple, symmetric, no JVD, no thyromegaly, no lymphadenopathy, no carotid bruit, JVD Heart: negative: RRR, no murmur, no gallops, no rubs, normal peripheral pulses, irregular, diminshed peripheral pulses, murmur present, II/IV, III/IV Respiratory: negative: CTAB, no wheezes, no rales, no ronchi, normal chest expansion, no tachypnea, normal percussion, rales, rhonchi, tachypneic, wheezes Hosp A/P (1) Systolic heart failure Code(s): I50.20 - UNSPECIFIED SYSTOLIC (CONGESTIVE) HEART FAILURE Status: Acute (2) DAVID (acute kidney injury) Code(s): N17.9 - ACUTE KIDNEY FAILURE, UNSPECIFIED Status: Acute (3) Abnormal LFTs Code(s): R94.5 - ABNORMAL RESULTS OF LIVER FUNCTION STUDIES Status: Acute (4) Acute metabolic encephalopathy Code(s): G93.41 - METABOLIC ENCEPHALOPATHY Status: Acute (5) Cardiomyopathy Code(s): I42.9 - CARDIOMYOPATHY, UNSPECIFIED Status: Acute (6) Dementia Code(s): F03.90 - UNSPECIFIED DEMENTIA WITHOUT BEHAVIORAL DISTURBANCE Status: Acute (7) Moderate to severe mitral regurgitation Code(s): I34.0 - NONRHEUMATIC MITRAL (VALVE) INSUFFICIENCY Status: Acute - Plan pt's daughter updated about his medical issues. his lfts are improving. pt will need placement since he lives alone. will continue current meds. appreciate cardio and gi's input. his HF is compensated.
[2019-04-11] MEDS: Atorvastatin Calcium 40 MG TAB PO SCH (19:46)
[2019-04-12 05:17] LABS: ALT (SGPT) 168 U/L (8-55); AST (SGOT) 62 U/L (5-34); Albumin 2.8 g/dL (3.4-4.8); Alkaline Phosphatase 251 U/L (40-150); Anion Gap 13 mmol/L (10-20); BUN (Urea Nitrogen) 17 mg/dL (8.4-25.7); Bilirubin, Total 1.1 mg/dL (0.2-1.2); Calc. Creatinine Clearance 61 mL/min (70-130); Carbon Dioxide 19 mmol/L (23-31); Chloride 106 mmol/L (98-107); Estimated GFR-MDRD Greater than 90; Globulin 2.8 g/dL (2.4-3.5); Glucose 121 mg/dL (83-110); Protein, Total 5.6 g/dL (5.8-8.1); Sodium 134 mmol/L (136-145)
[2019-04-12] MEDS ORDERED: Non-Formulary Item 1 EACH (Ferrous Sulfate 325 MG) PO SCH (09:00)
[2019-04-12] MEDS: Montelukast Sodium 10 mg Tablet PO SCH (09:14)
[2019-04-12] MEDS: Lisinopril 5 MG TAB PO SCH (09:15)
[2019-04-12] MEDS: Ferrous Sulfate 325 MG TAB PO SCH ×2 (09:15→19:57)
[2019-04-12] MEDS: Famotidine 20 MG TAB PO SCH ×2 (09:16→19:58)
[2019-04-12] MEDS: Donepezil HCl 10 MG TAB PO SCH (09:16)
[2019-04-12] MEDS: Carvedilol 3.125 MG TAB PO SCH ×2 (09:17→19:58)
[2019-04-12] MEDS: Amiodarone 200 MG TAB PO SCH (09:17)
--- NOTE | 2019-04-12 10:04 | PRG ---
DATE OF SERVICE: 04/12/2019 SUBJECTIVE: Mr. Mo is in bed. He offers no complaints, but as mentioned in the chart he does have severe dementia. OBJECTIVE: VITAL SIGNS: Blood pressure 117/72, pulse 70. LUNGS: Clear. CARDIAC: Normal S1, normal S2. ASSESSMENT: 1. Combined systolic diastolic heart failure compensated. 2. Nonsustained ventricular tachycardia. No recurrence previously, but did have 8-beat ventricular tachycardia today. PLAN: Continue current medical regimen. His primary booking officer will return tomorrow. Job ID: [id number]
[2019-04-12 10:30] LABS: #Eosinphils 0.1 thou/uL (0.0-0.7); #Lymphocytes 1.3 thou/uL (1.20-3.40); #Monocytes 0.7 thou/uL (0.11-0.59); #Neutrophils 5.3 thou/uL (1.40-6.50); %Basophils 0.4 % (0.0-1.0); %Eosinophils 0.9 % (0.0-10.0); %Lymphocytes 17.3 % (21.0-51.0); %Monocytes 9.4 % (0.0-10.0); %Neutrophils 72.1 % (42.0-75.0); Hemoglobin 14.6 g/dL (14.0-18.0); Mean Corpuscular HGB CONC 33.2 g/dL (32.0-36.0); Mean Corpuscular Hemoglobin 32.1 pg (27.0-31.0); Mean Corpuscular Volume 96.7 fL (78.0-98.0); Mean Platelet Volume 10.8 fL (7.4-10.4); Platelet Count 175 thou/uL (130-400); RBC Distribution Width 13.5 % (11.5-14.5); Red Blood Cell (RBC) Count 4.56 mill/uL (4.70-6.10); White Blood Cell (WBC) Count 7.3 thou/uL (4.8-10.8)
[2019-04-12] MEDS: Enoxaparin Sodium 40 MG/0.4 ML SYRINGE SC SCH (10:59)
[2019-04-12] MEDS ORDERED: Dextrose 5% in Water 1,000 ML IV PRN (12:57)
[2019-04-12] MEDS ORDERED: Dextrose 50% Abboject 50 ML SYRINGE SLOW IVP PRN (12:57)
--- NOTE | 2019-04-12 13:02 | PDOC.HOSPP ---
- Subjective Encounter Date: 04/12/19 Encounter Time: 10:15 Subjective: pt up in bed no complains - Objective Vital Signs & Weight: Vital Signs (12 hours) Temp Pulse Resp BP BP BP Pulse Ox 04/12/19 11:35 97.5 F L 67 15 119/78 98 04/12/19 09:15 69 04/12/19 08:25 97.4 F L 69 16 117/72 97 04/12/19 08:10 97 04/12/19 05:03 97.6 F 64 20 104/74 99 Weight Admit Weight 114 lb 9.6 oz Weight 114 lb 9.6 oz I&O: 04/11/19 04/12/19 04/13/19 06:59 06:59 06:59 Intake Total 150 745 240 Balance 150 745 240 Result Diagrams: 04/12/19 10:16 04/12/19 04:48 Additional Labs: Accuchecks 04/12/19 04/12/19 04/11/19 11:52 06:15 16:41 POC Glucose 132 H 103 119 H Hospitalist ROS - Review of Systems Respiratory: denies: cough, dry, shortness of breath, hemoptysis, SOB with excertion, pleuritic pain, sputum, wheezing, other Cardiovascular: denies: chest pain, palpitations, orthopnea, paroxysmal noc. dyspnea, edema, light headedness, other Gastrointestinal: denies: nausea, vomitting, abdominal pain, diarrhea, constipation, melena, hematochezia, other - Medication Medications: Active Medications Generic Name Dose Route Start Last Admin Trade Name Freq PRN Reason Stop Dose Admin Amiodarone HCl 400 mg 04/11/19 09:00 04/12/19 09:17 Cordarone PO 400 mg DAILY ARTURO Administration Atorvastatin Calcium 40 mg 04/08/19 21:00 04/11/19 19:46 Lipitor PO 40 mg HS ARTURO Administration Carvedilol 3.125 mg 04/09/19 21:00 04/12/19 09:17 Coreg PO 3.125 mg BID ARTURO Administration Donepezil HCl 10 mg 04/09/19 09:00 04/12/19 09:16 Aricept PO 10 mg DAILY ARTURO Administration Enoxaparin Sodium 40 mg 04/11/19 09:00 04/12/19 10:59 Lovenox SC 40 mg DAILY ARTURO Administration Famotidine 20 mg 04/08/19 21:00 04/12/19 09:16 Pepcid PO 20 mg BID ARTURO Administration Ferrous Sulfate 325 mg 04/12/19 09:00 04/12/19 09:15 Feosol PO 325 mg BID ARTURO Administration Lisinopril 2.5 mg 04/10/19 09:00 04/12/19 09:15 Zestril PO 2.5 mg DAILY ARTURO Administration Montelukast Sodium 10 mg 04/09/19 09:00 04/12/19 09:14 Singulair PO 10 mg DAILY ARTURO Administration Quetiapine Fumarate 25 mg 04/10/19 21:00 04/11/19 19:47 Seroquel PO 25 mg HS ARTURO Administration - Exam Heart: negative: RRR, no murmur, no gallops, no rubs, normal peripheral pulses, irregular, diminshed peripheral pulses, murmur present, II/IV, III/IV Respiratory: negative: CTAB, no wheezes, no rales, no ronchi, normal chest expansion, no tachypnea, normal percussion, rales, rhonchi, tachypneic, wheezes Gastrointestinal: negative: soft, non-tender, non-distended, normal bowel sounds , no palpable masses, no hepatomegaly, no splenomegaly, no bruit, no guarding, no rigidity, tender to palpation, distended, diminished bowl sounds, voluntary guarding Hosp A/P (1) Systolic heart failure Code(s): I50.20 - UNSPECIFIED SYSTOLIC (CONGESTIVE) HEART FAILURE Status: Acute (2) DAVID (acute kidney injury) Code(s): N17.9 - ACUTE KIDNEY FAILURE, UNSPECIFIED Status: Acute (3) Abnormal LFTs Code(s): R94.5 - ABNORMAL RESULTS OF LIVER FUNCTION STUDIES Status: Acute (4) Acute metabolic encephalopathy Code(s): G93.41 - METABOLIC ENCEPHALOPATHY Status: Acute (5) Cardiomyopathy Code(s): I42.9 - CARDIOMYOPATHY, UNSPECIFIED Status: Acute (6) Dementia Code(s): F03.90 - UNSPECIFIED DEMENTIA WITHOUT BEHAVIORAL DISTURBANCE Status: Acute (7) Moderate to severe mitral regurgitation Code(s): I34.0 - NONRHEUMATIC MITRAL (VALVE) INSUFFICIENCY Status: Acute - Plan pt's daughter updated about his medical issues. his lfts are improving. pt will need placement since he lives alone. will continue current meds. appreciate cardio and gi's input. his HF is compensated. 04/12 pt up in bed no complains, pt's daughter is his POA and she does not want pt to have a life vest. He will need snf placement. Updated pt's daughter.
[2019-04-12] MEDS: HumaLOG 300 UNITS/3 ML VIAL SC PRN (18:07)
[2019-04-12] MEDS: Atorvastatin Calcium 40 MG TAB PO SCH (19:57)
[2019-04-13 05:29] LABS: ALT (SGPT) 146 U/L (8-55); AST (SGOT) 49 U/L (5-34); Albumin 2.9 g/dL (3.4-4.8); Alkaline Phosphatase 274 U/L (40-150); Anion Gap 13 mmol/L (10-20); BUN (Urea Nitrogen) 20 mg/dL (8.4-25.7); Bilirubin, Total 0.9 mg/dL (0.2-1.2); Calc. Creatinine Clearance 54 mL/min (70-130); Calcium 8.3 mg/dL (7.8-10.44); Carbon Dioxide 22 mmol/L (23-31); Chloride 104 mmol/L (98-107); Estimated GFR-MDRD Greater than 90; Globulin 2.9 g/dL (2.4-3.5); Glucose 96 mg/dL (83-110); Potassium 3.8 mmol/L (3.5-5.1); Protein, Total 5.8 g/dL (5.8-8.1); Sodium 135 mmol/L (136-145)
--- NOTE | 2019-04-13 08:40 | PDOC.PALPN ---
Palliative Progress Note - Subjective Awake, confused. No complaints. ROS: 10 point review negative. - Objective Vital Signs: Vital Signs - Most Recent Temp Pulse Resp BP Pulse Ox 97.8 F 69 16 134/94 H 94 L 04/13/19 08:00 04/13/19 08:00 04/13/19 08:00 04/13/19 08:00 04/13/19 08:00 - Physical Exam Constitutional: confusion HEENT: PERRLA, moist MMs, EOMI Respiratory: unlabored breathing Gastrointestinal: soft, non-tender Musculoskeletal: no edema, pulses present Neurological: moves all 4 limbs Deviation from normal: Confused, oriented to self. Skin: no rash - Plan Plan: Daughter met in person with Alison Warren RNneedle leader and completed paperwork for DNAR and OOH DNAR as well as MPOA. Seeking potential placement for patient secondary to decline and inability to continue to safely live at home with disease trajectory. *Therapeutic Listening with patient *Assisted in meal set up, patient difficulty in setting up to eat and feeding self without assistance. *Spoke with CM on unit, initiating placement at facility. . [40] minutes spent on this encounter with >50% of the time in counseling and coordination of care.
[2019-04-13] MEDS ORDERED: Carvedilol 3.125 MG TAB PO SCH ×2 (09:12→10:30)
[2019-04-13] MEDS ORDERED: Lisinopril 5 MG TAB PO SCH ×2 (09:13→10:30)
[2019-04-13] MEDS: Enoxaparin Sodium 40 MG/0.4 ML SYRINGE SC SCH (09:59)
[2019-04-13] MEDS: Amiodarone 200 MG TAB PO SCH (09:59)
[2019-04-13] MEDS: Montelukast Sodium 10 mg Tablet PO SCH (09:59)
[2019-04-13] MEDS: Ferrous Sulfate 325 MG TAB PO SCH ×2 (10:00→20:59)
[2019-04-13] MEDS: Donepezil HCl 10 MG TAB PO SCH (10:00)
[2019-04-13] MEDS: Famotidine 20 MG TAB PO SCH ×2 (10:01→20:59)
[2019-04-13] MEDS: Lisinopril 5 MG TAB PO SCH (10:53)
[2019-04-13] MEDS: Carvedilol 3.125 MG TAB PO SCH ×2 (10:53→20:59)
--- NOTE | 2019-04-13 16:55 | PDOC.HOSPP ---
- Subjective Encounter Date: 04/13/19 Encounter Time: 10:00 Subjective: pt up in bed no complains - Objective Vital Signs & Weight: Vital Signs (12 hours) Temp Pulse Pulse Pulse Resp BP BP 04/13/19 16:00 97.5 F L 65 16 04/13/19 14:15 68 66 122/71 114/83 04/13/19 11:42 97.3 F L 68 16 04/13/19 10:53 69 04/13/19 10:52 66 04/13/19 08:20 04/13/19 08:00 97.8 F 69 16 BP Pulse Ox 04/13/19 16:00 116/74 97 04/13/19 14:15 04/13/19 11:42 111/65 96 04/13/19 10:53 04/13/19 10:52 04/13/19 08:20 96 04/13/19 08:00 134/94 H 94 L Weight Admit Weight 114 lb 9.6 oz Weight 114 lb 9.6 oz I&O: 04/12/19 04/13/19 04/14/19 06:59 06:59 06:59 Intake Total 745 770 200 Balance 745 770 200 Result Diagrams: 04/12/19 10:16 04/13/19 04:32 Additional Labs: Accuchecks 04/13/19 04/13/19 04/12/19 10:54 06:25 16:55 POC Glucose 92 79 174 H Hospitalist ROS - Review of Systems Respiratory: denies: cough, dry, shortness of breath, hemoptysis, SOB with excertion, pleuritic pain, sputum, wheezing, other Cardiovascular: denies: chest pain, palpitations, orthopnea, paroxysmal noc. dyspnea, edema, light headedness, other Gastrointestinal: denies: nausea, vomitting, abdominal pain, diarrhea, constipation, melena, hematochezia, other - Medication Medications: Active Medications Generic Name Dose Route Start Last Admin Trade Name Freq PRN Reason Stop Dose Admin Amiodarone HCl 400 mg 04/11/19 09:00 04/13/19 09:59 Cordarone PO 400 mg DAILY ARTURO Administration Atorvastatin Calcium 40 mg 04/08/19 21:00 04/12/19 19:57 Lipitor PO 40 mg HS ARTURO Administration Donepezil HCl 10 mg 04/09/19 09:00 04/13/19 10:00 Aricept PO 10 mg DAILY ARTURO Administration Enoxaparin Sodium 40 mg 04/11/19 09:00 04/13/19 09:59 Lovenox SC 40 mg DAILY ARTURO Administration Famotidine 20 mg 04/08/19 21:00 04/13/19 10:01 Pepcid PO 20 mg BID ARTURO Administration Ferrous Sulfate 325 mg 04/12/19 09:00 04/13/19 10:00 Feosol PO 325 mg BID ARTURO Administration Insulin Human Lispro 0 units 04/12/19 12:57 04/12/19 18:07 Humalog SC 2 unit .MILD SLIDING SCALE PRN Administration Mild Correctional Scale Montelukast Sodium 10 mg 04/09/19 09:00 04/13/19 09:59 Singulair PO 10 mg DAILY ARTURO Administration Quetiapine Fumarate 25 mg 04/10/19 21:00 04/12/19 19:57 Seroquel PO 25 mg HS ARTURO Administration - Exam Neck: negative: supple, symmetric, no JVD, no thyromegaly, no lymphadenopathy, no carotid bruit, JVD Heart: negative: RRR, no murmur, no gallops, no rubs, normal peripheral pulses, irregular, diminshed peripheral pulses, murmur present, II/IV, III/IV Respiratory: negative: CTAB, no wheezes, no rales, no ronchi, normal chest expansion, no tachypnea, normal percussion, rales, rhonchi, tachypneic, wheezes Hosp A/P (1) Systolic heart failure Code(s): I50.20 - UNSPECIFIED SYSTOLIC (CONGESTIVE) HEART FAILURE Status: Acute (2) DAVID (acute kidney injury) Code(s): N17.9 - ACUTE KIDNEY FAILURE, UNSPECIFIED Status: Acute (3) Abnormal LFTs Code(s): R94.5 - ABNORMAL RESULTS OF LIVER FUNCTION STUDIES Status: Acute (4) Acute metabolic encephalopathy Code(s): G93.41 - METABOLIC ENCEPHALOPATHY Status: Acute (5) Cardiomyopathy Code(s): I42.9 - CARDIOMYOPATHY, UNSPECIFIED Status: Acute (6) Dementia Code(s): F03.90 - UNSPECIFIED DEMENTIA WITHOUT BEHAVIORAL DISTURBANCE Status: Acute (7) Moderate to severe mitral regurgitation Code(s): I34.0 - NONRHEUMATIC MITRAL (VALVE) INSUFFICIENCY Status: Acute - Plan pt's daughter updated about his medical issues. his lfts are improving. pt will need placement since he lives alone. will continue current meds. appreciate cardio and gi's input. his HF is compensated. 04/12 pt up in bed no complains, pt's daughter is his POA and she does not want pt to have a life vest. He will need snf placement. Updated pt's daughter. 04/13 pt had few beats of vtach, pt's daughter does not feel he needs a lifevest especially that he has dementia. will check electrolytes. possible discharge in am to snf
--- NOTE | 2019-04-13 19:41 | PRG ---
DATE OF SERVICE: 04/13/2019 SUBJECTIVE: Mr. Mo has no current complaints. OBJECTIVE: VITAL SIGNS: Blood pressure 160/74, pulse 65, temperature 97.5. LUNGS: Clear to auscultation. HEART: Regular rate and rhythm. ABDOMEN: Soft, nontender, and nondistended. EXTREMITIES: No edema. IMPRESSION: 1. Cardiomyopathy of unknown etiology. 2. Nonsustained ventricular tachycardia. 3. Advanced dementia. RECOMMENDATIONS: Family has opted for comfort measures only. LifeVest has been denied. At this point, we will continue with amiodarone therapy in addition to carvedilol and lisinopril. Conservative treatment has been recommended by the patient's daughter who is the [id number]. The patient is cleared for discharge from a cardiovascular standpoint. Can discontinue telemetry monitoring if going to stay here for several more days. Otherwise, I have no further recommendations. Job ID: [id number]
[2019-04-13] MEDS: Atorvastatin Calcium 40 MG TAB PO SCH (20:59)
[2019-04-14 04:52] LABS: ALT (SGPT) 126 U/L (8-55); AST (SGOT) 39 U/L (5-34); Alkaline Phosphatase 269 U/L (40-150); Anion Gap 11 mmol/L (10-20); BUN (Urea Nitrogen) 19 mg/dL (8.4-25.7); Bilirubin, Total 0.9 mg/dL (0.2-1.2); Calc. Creatinine Clearance 50 mL/min (70-130); Calcium 8.4 mg/dL (7.8-10.44); Carbon Dioxide 24 mmol/L (23-31); Chloride 105 mmol/L (98-107); Estimated GFR-MDRD Greater than 90; Glucose 105 mg/dL (83-110); Potassium 4.1 mmol/L (3.5-5.1); Sodium 136 mmol/L (136-145)
[2019-04-14] MEDS: Montelukast Sodium 10 mg Tablet PO SCH (08:23)
[2019-04-14] MEDS: Amiodarone 200 MG TAB PO SCH (08:24)
[2019-04-14] MEDS: Ferrous Sulfate 325 MG TAB PO SCH (08:24)
[2019-04-14] MEDS: Donepezil HCl 10 MG TAB PO SCH (08:24)
[2019-04-14] MEDS: Carvedilol 3.125 MG TAB PO SCH (08:24)
[2019-04-14] MEDS: Famotidine 20 MG TAB PO SCH (08:24)
[2019-04-14] MEDS: Enoxaparin Sodium 40 MG/0.4 ML SYRINGE SC SCH (08:25)
[2019-04-14] MEDS ORDERED: Lisinopril 5 MG TAB PO SCH (09:00)
--- NOTE | 2019-04-14 13:45 | PDOC.HOSPP ---
- Subjective Encounter Date: 04/14/19 Encounter Time: 08:45 Subjective: awake, responds well to verbal stimuli ate his breakfast, says he is ambulating with PT - Objective Vital Signs & Weight: Vital Signs (12 hours) Temp Pulse Resp BP BP Pulse Ox 04/14/19 12:00 98.1 F 63 16 119/73 98 04/14/19 08:24 64 125/87 04/14/19 08:00 97.6 F 64 16 132/88 97 04/14/19 04:00 98.4 F 63 16 101/68 99 Weight Admit Weight 114 lb 9.6 oz Weight 114 lb 9.6 oz I&O: 04/13/19 04/14/19 04/15/19 06:59 06:59 06:59 Intake Total 770 810 Balance 770 810 Result Diagrams: 04/12/19 10:16 04/14/19 04:16 Additional Labs: Accuchecks 04/14/19 04/14/19 04/13/19 10:43 06:03 19:52 POC Glucose 115 H 95 123 H 04/13/19 17:08 POC Glucose 148 H Hospitalist ROS - Medication Medications: Active Medications Generic Name Dose Route Start Last Admin Trade Name Freq PRN Reason Stop Dose Admin Amiodarone HCl 400 mg 04/11/19 09:00 04/14/19 08:24 Cordarone PO 400 mg DAILY ARTURO Administration Atorvastatin Calcium 40 mg 04/08/19 21:00 04/13/19 20:59 Lipitor PO 40 mg HS ARTURO Administration Carvedilol 6.25 mg 04/13/19 21:00 04/14/19 08:24 Coreg PO 6.25 mg BID ARTURO Administration Donepezil HCl 10 mg 04/09/19 09:00 04/14/19 08:24 Aricept PO 10 mg DAILY ARTURO Administration Enoxaparin Sodium 40 mg 04/11/19 09:00 04/14/19 08:25 Lovenox SC 40 mg DAILY ARTURO Administration Famotidine 20 mg 04/08/19 21:00 04/14/19 08:24 Pepcid PO 20 mg BID ARTURO Administration Ferrous Sulfate 325 mg 04/12/19 09:00 04/14/19 08:24 Feosol PO 325 mg BID ARTURO Administration Insulin Human Lispro 0 units 04/12/19 12:57 04/12/19 18:07 Humalog SC 2 unit .MILD SLIDING SCALE PRN Administration Mild Correctional Scale Lisinopril 5 mg 04/14/19 09:00 04/14/19 08:24 Zestril PO 5 mg DAILY ARTURO Administration Montelukast Sodium 10 mg 04/09/19 09:00 04/14/19 08:23 Singulair PO 10 mg DAILY ARTURO Administration Quetiapine Fumarate 25 mg 04/10/19 21:00 04/13/19 20:59 Seroquel PO 25 mg HS ARTURO Administration - Exam General Appearance: NAD, awake alert Eye: PERRL, anicteric sclera ENT: normocephalic atraumatic, no oropharyngeal lesions, moist mucosa Neck: supple, no JVD Heart: RRR, no murmur Respiratory: no wheezes, no rales Gastrointestinal: soft, non-tender, non-distended, normal bowel sounds Extremities: no cyanosis, no edema Neurological: CN's grossly intact, no focal deficits Hosp A/P (1) Acute exacerbation of CHF (congestive heart failure) Code(s): I50.9 - HEART FAILURE, UNSPECIFIED Status: Acute Qualifiers: Heart failure type: combined systolic and diastolic Qualified Code(s): I50.43 - Acute on chronic combined systolic (congestive) and diastolic ( congestive) heart failure (2) Elevated LFTs Code(s): R94.5 - ABNORMAL RESULTS OF LIVER FUNCTION STUDIES Status: Acute (3) Cardiomyopathy Code(s): I42.9 - CARDIOMYOPATHY, UNSPECIFIED Status: Chronic Qualifiers: Cardiomyopathy type: unspecified Qualified Code(s): I42.9 - Cardiomyopathy , unspecified (4) Dementia Code(s): F03.90 - UNSPECIFIED DEMENTIA WITHOUT BEHAVIORAL DISTURBANCE Status: Chronic Qualifiers: Dementia type: Alzheimer's disease (5) Moderate to severe mitral regurgitation Code(s): I34.0 - NONRHEUMATIC MITRAL (VALVE) INSUFFICIENCY Status: Chronic (6) Pulmonary HTN Code(s): I27.20 - PULMONARY HYPERTENSION, UNSPECIFIED Status: Chronic - Plan hemostable awaiting placement no life vest ef is around 25% with severe MR may dc if placement is ready
--- NOTE | 2019-04-14 15:44 | PQF ---
CLINICAL DOCUMENTATION IMPROVEMENT CLARIFICATION FORM: ICD-10 Updated PLEASE DO AN ADDENDUM TO THE PROGRESS NOTE WITH ANY DOCUMENTATION UPDATES OR ADDITIONS AND CARRY THROUGH TO DC SUMMARY. THANK YOU. DATE: 04/14/2019 ATTN: Dr. Maloney Please exercise your independent, professional judgment in responding to the clarification form. Clinical indicators are provided on the bottom of this form for your review Please check appropriate box(s) to clarify if the following diagnosis has been ruled in or ruled out: Acute DE [ ] Ruled in diagnosis [ ] Continue to treat [ ] Resolved [ x] Ruled out diagnosis [ ] Cannot rule out diagnosis [ ] Other diagnosis [ ] Unable to determine In addition, please specify: Present on Admission (POA): [x ] Yes [ ] No [ ] Unable to determine For continuity of documentation, please document condition throughout progress notes and discharge summary. Thank You. CLINICAL INDICATORS - SIGNS / SYMPTOMS / LABS PN 04/09-04/10: Elevated troponin. Acute Acute DE. Suspected 04/07 04/08@0133 04/08@0501 LABS: Troponin I 0.165 0.155 0.135 CK MB 1.0 04/09 (G[place]acio) Impression: Nonsustained ventricular tachycardia. Cardiomyopathy of unknown etiology. 04/14: Acute exacerbation of CHF, combined systolic and diastolic. Elevated LFT's Cardiomyopathy RISKS: H&P 04/08: Hx dementia, HTN. CKD 3. DM. TREATMENT: Cardiology Consult 04/09 Order 04/10: Lovenox 40mg SC daily Thank you, Sudha (This form is maintained as a part of the permanent medical record) 2014 [employer]. All Rights Reserved Sudha Roper RN, [email or web address] Office: [phone] [facility] [facility]
[2019-04-14 15:47] VITALS: BP 99/59; TEMP 97.8
--- NOTE | 2019-04-14 18:17 | DIS ---
DATE OF ADMISSION: 04/08/2019 DATE OF DISCHARGE: 04/14/2019 DISCHARGE DISPOSITION: To [facility]. PRIMARY DISCHARGE DIAGNOSES: 1. Congestive heart failure exacerbation with systolic and diastolic dysfunction with known ejection fraction of around 25%. 2. Severe mitral regurgitation. 3. Cardiomyopathy. 4. Elevated LFTs, likely due to congestive heart failure. 5. Dementia. 6. History of pulmonary hypertension. PROCEDURES DONE DURING HOSPITALIZATION: Abdominal ultrasound done, showed moderate amount of gallbladder sludge without evidence of acute cholecystitis. Common bile duct was 2.1 mm. There was no dilatation seen here. CT chest, abdomen, and pelvis with contrast done showed bilateral pleural effusions, diverticulosis, hepatic cyst. Echo with 2D Doppler showed EF of 25% to 30%, moderate concentric LVH, restrictive filling pattern with suggestive of restrictive diastolic function, moderate to severe mitral regurgitation, moderate tricuspid regurgitation, moderately elevated pulmonary artery pressure. Urine culture, no growth. H and H 14 and 44 and platelet count 175, MCV is 96, white count of 7. INR was 1.8, PTT 38, PT 20, BUN 19, creatinine 0.9 this morning. AST 39, ALT 126, alkaline phosphatase 269, total bilirubin 0.9, albumin is 3.0. Lipase was 24. DISCHARGE MEDICATIONS: 1. Aricept 10 mg p.o. daily. 2. Doxazosin 8 mg p.o. at bedtime. 3. Ferrous sulfate 325 mg p.o. twice daily. 4. Singulair 10 mg daily. 5. Zocor 20 mg p.o. at bedtime. 6. Amiodarone 200 mg p.o. twice daily for 2 weeks, then daily thereafter. 7. Coreg 3.125 mg p.o. twice daily. 8. Lisinopril 2.5 mg p.o. daily. 9. Seroquel 25 mg p.o. at bedtime. ALLERGIES: NO KNOWN DRUG ALLERGIES. INPATIENT CONSULTS: 1. Dr. Brizuela for Cardiology. 2. Dr. Fatima for Gastroenterology. DISCHARGE PLAN: The patient to follow up with primary care physician in 1 week. BRIEF COURSE DURING HOSPITALIZATION: The patient initially got admitted on the with complaints of increased lethargic and poor oral intake. He was essentially initially admitted for acute metabolic encephalopathy, abnormal LFTs, mild acute kidney injury, CHF exacerbation with systolic and diastolic dysfunction. The patient has had consultation with Dr. Fatima for Gastroenterology due to elevated LFTs and Dr. Brizuela for Cardiology. He has known history of cardiomyopathy with ejection fraction of around 25% to 30%. The patient also had episodes of nonsustained VT during his stay here. The family did not opt for LifeVest or AICD due to advanced dementia. His medications were optimized. The patient's systolic blood pressure runs between 100 and 110 the last 2 to 3 days now. He is hemodynamically stable, tolerating oral solid diet and is more awake. Due to advanced dementia and multiple medical issues, he is being discharged to the [facility] for further recuperation and likely long-term stay. He is also do not attempt to resuscitate. This was confirmed with the patient's daughter, Ms. Carolina Tran. A total of 35 minutes was spent on discharge plan. Please see a [id number] documentation for the day of discharge on zintin. Job ID: [id number] [facility]
[2019-04-14] MEDS: HumaLOG 300 UNITS/3 ML VIAL SC PRN (18:30)
== END 2019-04-14 20:07 | DRG 682 ==
LOC: ERS 21:43 → 2SE 04-08 01:06 → OBSVTOIN 04-08 11:20 → EEVIPCON 04-08 11:20 → 2SE 04-08 14:29
PROVIDERS: ADMIT Hospitalist; ATTEND Hospitalist
DX: N17.9 Acute kidney failure, unspecified (principal); G93.41 Metabolic encephalopathy; I50.41 Acute combined systolic (congestive) and diastolic (congestive) heart failure; I13.0 Hypertensive heart and chronic kidney disease with heart failure and stage 1 through stage 4 chronic kidney disease, or unspecified chronic kidney disease; I47.2 Ventricular tachycardia; I42.9 Cardiomyopathy, unspecified; F03.90 Unspecified dementia, unspecified severity, without behavioral disturbance, psychotic disturbance, mood disturbance, and anxiety; E11.22 Type 2 diabetes mellitus with diabetic chronic kidney disease; E86.0 Dehydration; D69.6 Thrombocytopenia, unspecified; R16.0 Hepatomegaly, not elsewhere classified; I34.0 Nonrheumatic mitral (valve) insufficiency; N40.0 Benign prostatic hyperplasia without lower urinary tract symptoms; J45.909 Unspecified asthma, uncomplicated; N18.3 Chronic kidney disease, stage 3 (moderate); Z66 Do not resuscitate; Z98.890 Other specified postprocedural states; E78.5 Hyperlipidemia, unspecified; Z51.5 Encounter for palliative care; K21.9 Gastro-esophageal reflux disease without esophagitis; M19.91 Primary osteoarthritis, unspecified site; R94.5 Abnormal results of liver function studies; R53.81 Other malaise; R74.8 Abnormal levels of other serum enzymes; Z79.899 Other long term (current) drug therapy
CPT/HCPCS: 36415; 36416; 51701; 71260; 72193; 74170; 76705; 80053; 81003; 81015; 82140; 82553; 83605; 83690; 83735; 84484; 85025; 85610; 85730; 87086; 93005; 93306; 93798; J1650; J7608